=== PATIENT | female | born 1990 | race Two or more races ===

== ENCOUNTER 2018-03-25 23:22 | Emergency (ER) | payer MEDICAID ==
[~2018-03-25] VITALS: Ht 152.4 cm; Wt 89.9 kg
[2018-03-25 23:26] VITALS: BP 120/78
[2018-03-25] MEDS ORDERED: LIDOCAINE-MPF 1%, 5ML ONE (23:57)
[2018-03-26] MEDS ORDERED: LIDOCAINE 2%, 20ML SQ ONE
[2018-03-26] MEDS ORDERED: BACITRACIN ZINC OINT 500U/GM, 0.9 GM ONE (00:23)
== END 2018-03-26 00:38 | disposition home or self-care (01) ==
LOC: ED 23:59
DX: S61.411A Laceration without foreign body of right hand, initial encounter (principal); S61.432A Puncture wound without foreign body of left hand, initial encounter; X58.XXXA Exposure to other specified factors, initial encounter; Y93.89 Activity, other specified; Y92.89 Other specified places as the place of occurrence of the external cause; Y99.8 Other external cause status
CPT/HCPCS: 12001; 99283